=== PATIENT | male | born 1960 | race Caucasian/White ===

== ENCOUNTER 2017-04-29 10:54 | Outpatient (CLI) | payer OTHER ==
[2017-04-29 12:23] LABS: #Basophils 0.1 thou/uL (0.0-0.2); #Eosinphils 0.1 thou/uL (0.0-0.7); #Monocytes 0.8 thou/uL (0.11-0.59); #Neutrophils 5.5 thou/uL (1.40-6.50); %Basophils 0.7 % (0.0-1.0); %Eosinophils 1.2 % (0.0-10.0); Anion Gap 11 mmol/L (10-20); BUN (Urea Nitrogen) 17 mg/dL (8.4-25.7); Calc. Creatinine Clearance 0 mL/min (70-130); Calcium 9.5 mg/dL (7.8-10.44); Carbon Dioxide 27 mmol/L (22-29); Chloride 107 mmol/L (98-107); Estimated GFR-MDRD 72; Red Blood Cell (RBC) Count 5.74 mill/uL (4.70-6.10); White Blood Cell (WBC) Count 8.5 thou/uL (4.8-10.8)
== END 2017-04-29 10:55 | disposition home or self-care (01) ==
LOC: LABBT 10:54
PROVIDERS: ATTEND Orthopaedic Surgery
DX: Z01.818 Encounter for other preprocedural examination (principal)
CPT/HCPCS: 80048; 85025; 93005; 93010

== ENCOUNTER 2017-06-20 06:10 | Day surgery (SDC) | payer OTHER ==
[2017-06-19 12:33] VITALS: BMI 36.3
[2017-06-20] MEDS ORDERED: CEFAZOLIN/Water 2 GM/20 ML SYRINGE ONE (06:24)
[2017-06-20] MEDS ORDERED: Fentanyl 100 MCG/2 ML VIAL ONE ×2 (06:27→08:14)
[2017-06-20] MEDS ORDERED: Lidocaine 1% (PF) 30 ML VIAL ONE (06:27)
[2017-06-20] MEDS ORDERED: Midazolam HCl 2 mg/2 ml Vial ONE (06:27)
[2017-06-20] MEDS ORDERED: Ropivacaine 0.2% HCl/PF 20 ML ONE (06:27)
[2017-06-20 06:46] LABS: #Basophils 0.1 thou/uL (0.0-0.2); #Eosinphils 0.1 thou/uL (0.0-0.7); #Lymphocytes 2.2 thou/uL (1.20-3.40); #Monocytes 0.9 thou/uL (0.11-0.59); #Neutrophils 5.6 thou/uL (1.40-6.50); %Eosinophils 1.5 % (0.0-10.0); %Lymphocytes 24.3 % (21.0-51.0); %Monocytes 10.3 % (0.0-10.0); %Neutrophils 62.9 % (42.0-75.0); Hemoglobin 16.1 g/dL (14.0-18.0); Mean Corpuscular HGB CONC 32.8 g/dL (32.0-36.0); Mean Corpuscular Hemoglobin 29.2 pg (27.0-31.0); Mean Platelet Volume 6.5 fL (7.4-10.4); Platelet Count 331 thou/uL (130-400); RBC Distribution Width 12.3 % (11.5-14.5); Red Blood Cell (RBC) Count 5.52 mill/uL (4.70-6.10); White Blood Cell (WBC) Count 8.9 thou/uL (4.8-10.8)
[2017-06-20 07:04] LABS: Anion Gap 12 mmol/L (10-20); BUN (Urea Nitrogen) 18 mg/dL (8.4-25.7); Calc. Creatinine Clearance 124 mL/min (70-130); Calcium 9.2 mg/dL (7.8-10.44); Carbon Dioxide 22 mmol/L (22-29); Chloride 109 mmol/L (98-107); Estimated GFR-MDRD 74; Glucose 108 mg/dL (70-105); Potassium 4.3 mmol/L (3.5-5.1); Sodium 139 mmol/L (136-145)
[2017-06-20] MEDS ORDERED: Ondansetron HCl/PF 4 MG/2 ML Vial IVP PRN (07:40)
[2017-06-20] MEDS ORDERED: Ropivacaine 0.2% 550 ML 550 ML NERVE BLCK SCH (07:40)
[2017-06-20] MEDS ORDERED: traMADol HCl 50 MG TAB PO PRN ×2 (07:40)
[2017-06-20] MEDS ORDERED: Ketorolac Tromethamine 30 MG/ML VIAL IVP PRN (07:40)
[2017-06-20] MEDS ORDERED: HYDROcodone/Acetaminophen 5/325 mg Tablet PO PRN ×2 (07:40)
[2017-06-20] MEDS ORDERED: Zolpidem Tartrate 5 MG TAB PO PRN (07:40)
[2017-06-20] MEDS ORDERED: Promethazine HCl 25 MG/ML VIAL IM PRN (07:40)
[2017-06-20] MEDS ORDERED: Fentanyl 100 MCG/2 ML VIAL IV PRN (07:42)
[2017-06-20] MEDS ORDERED: Ropivacaine 0.5% HCl/PF (150 MG/30 ML VIAL) ONE (10:15)
[2017-06-20] MEDS ORDERED: Propofol 200 MG/20 ML VIAL ONE (10:20)
[2017-06-20] MEDS ORDERED: Ketorolac Tromethamine 30 MG/ML VIAL ONE (10:20)
[2017-06-20] MEDS ORDERED: Lidocaine 1% PF 5 ML VIAL ONE (10:20)
[2017-06-20] MEDS ORDERED: Ondansetron HCl/PF 4 MG/2 ML Vial ONE ×2 (10:20→11:18)
[2017-06-20] MEDS ORDERED: Glycopyrrolate 0.2 MG/ML 5 ML SYRINGE ONE (10:20)
--- NOTE | 2017-06-20 11:39 | OP ---
DATE OF PROCEDURE: 06/20/2017 PREOPERATIVE DIAGNOSES: Rotator cuff tear, acromioclavicular joint arthritis. POSTOPERATIVE DIAGNOSES: Rotator cuff tear, acromioclavicular joint arthritis. PROCEDURE: Arthroscopic subacromial decompression, arthroscopic acromioclavicular joint resection an d arthroscopic rotator cuff repair. SURGEON: Rudi Garibay M.D. ANESTHESIA: General. BLOOD LOSS: Minimal. SPECIMEN: None. DRAINS: None. COMPLICATIONS: None. PROCEDURE IN DETAIL: The patient was taken to the operating room where general anesthesia was induce d. The patient was placed in left lateral decubitus position. Right arm was placed in 15 pounds of traction. Scope was placed in the glenohumeral joint. There was no arthritis. There was a full-thi ckness rotator cuff tear. Scope was placed in the subacromial bursa. There was fluid from the anter ior of the joint which had extruded, I evacuated this, created a lateral portal and performed anterio r and inferior acromioplasty, resecting the CA ligament and performed a complete bursectomy, exposed the distal clavicle as well. Distal clavicle and acromioclavicular joint very arthritic. I resected about 8 mm of distal clavicle using arthroscopic bur and shaver. Rotator cuff tear was easily ident ified. I freshened the tear with a shaver. I freshened the humerus greater tuberosity area with a b ur, single corkscrew suture was placed through the defect, I passed 4 sutures through in a horizontal mattress fashion, obtained a good watertight repair and then reinforced with a SwiveLock device. Sh oulder was drained. Portals closed with nylon suture and sterile dressings applied. There were no c omplications.
== END 2017-06-20 12:13 | disposition home or self-care (01) ==
LOC: SDC 06:10
PROVIDERS: ATTEND Orthopaedic Surgery
DX: M75.122 Complete rotator cuff tear or rupture of left shoulder, not specified as traumatic (principal); M75.22 Bicipital tendinitis, left shoulder; I10 Essential (primary) hypertension; Z90.49 Acquired absence of other specified parts of digestive tract
CPT/HCPCS: 36415; 80048; 85025; A4306; C1713; G8984-GP-CK; G8985-GP-CK; G8986-GP-CK; J1885; J2001; J2250; J2405; J2704; J2795; J3010

== ENCOUNTER 2019-03-18 07:44 | Outpatient (CLI) | payer OTHER ==
--- NOTE | 2019-03-18 08:55 | MRI ---
MRI LEFT SHOULDER: 03/18/2019 PROVIDED CLINICAL HISTORY: Shoulder pain. FINDINGS: There is full-thickness, partial-width tearing involving the anterior distal supraspinatus tendon at the footplate, with retraction to about the level of the acromion. Evaluation is limited by patient m otion. At least high grade partial thickness undersurface tearing involving the cranial fibers of the subscapularis tendon is demonstrated. There is intra-articular dislocation of the longhead biceps tendon with an attenuated and irregular a ppearance to the distal visualized portions of the biceps tendon at the level of the bicipital groove distally. The teres minor and infraspinatus tendons appear intact. There is supraspinatus and subsca pularis muscular volume loss without evidence for fatty infiltration. The glenoid labrum and glenohumeral articular cartilage are suboptimally evaluated on the basis of th is examination. There is signal alteration in the region of the superior labrum that could reflect SL AP tear. The amount of fluid within the glenohumeral joint appears physiologic. There is greater than physiologic subacromial/subdeltoid bursal fluid. Acromioclavicular joint osteoarthrosis is noted with mass effect upon the subjacent supraspinatus. No focal concerning regional marrow or muscular signal abnormality is evident. IMPRESSION: 1. Full thickness, partial width tearing of the supraspinatus tendon. 2. At least high grade partial thickness undersurface tearing of the cranial fibers of the subscapula ris with associated intra-articular dislocation of the longhead biceps tendon, which appears attenuat ed and irregular distally. 3. Acromioclavicular joint osteoarthrosis. 4. Possible SLAP tear. POS: OFF
== END 2019-03-18 07:45 | disposition home or self-care (01) ==
LOC: TBSIIMAG 07:44
PROVIDERS: ATTEND Orthopaedic Surgery
DX: M25.512 Pain in left shoulder (principal); M75.112 Incomplete rotator cuff tear or rupture of left shoulder, not specified as traumatic; M19.012 Primary osteoarthritis, left shoulder